=== PATIENT | male | born 1970 | race Caucasian/White ===

== ENCOUNTER → 2018-05-24 10:23 | Outpatient (CLI) | payer OTHER, SELFPAY | PROVIDERS: Family Provider Family Medicine; PCP Family Medicine; Visit Provider Physician Assistant Surgical | DX: S86.011A Strain of right Achilles tendon, initial encounter (principal) | CPT/HCPCS: 73721 ==

== ENCOUNTER 2018-07-22 09:00 | Outpatient (RCR) | payer OTHER, SELFPAY ==
--- NOTE | 2018-07-04 13:46 | HP.PTEVAL_ITS ---
Patient's Visit Information YUNIEL LEE is a 48 year old M referred to Physical Therapy by Vivienne Philip DO with a diagnosis of R achilles tendon injury. Date of Evaluation: 07/04/18 Physical Therapist: Matty Huang - Visit Plan Frequency: 2-3x /Week Duration: 2-4 Weeks Plan: Start with gentle ROM, do not stress DF yet. Add in INV/EVR gentle strengthening (1-2 weeks). Progress to full ROM at 8-12 weeks. Progress to strenghtening and gait as tolerated. - Subjective Subjective: Pt. is here today for his initial evaluation with diagnosis of R achilles tendon injury. Pt. reports hurting his leg while gettingout of his tractor at work. Pt. believes that he caught his heel on a step and when he landed it felt likea sponge. He report no real pain, but was unable to push off with his R foot any more. Injury occured on 05/15/18. Pt. eventually saw in orthopedic physician who got an MRI showing R achilles tendon rupture with 2mm fluid filled gap between endings. Pt. opted to conservative care at this point in time. He is currently in a CAM boot constantly except for showers. Pt. reports being consistent with this precaution. He continues to work with boot on. Pt. reports no pain currently, but does notice increased swelling. He also reports a bump on his achilles tendon now. Pt. has not been doing any exercises or icing at this point in time. 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 - Objective POSTURE: Pt. is able to stand with proper [place]ON[place], but slight L sided wt. shift. PALPATION: Pt. has slight brusing inferior to lateral malleolus. Pt. has mild non pitting edema throughout R distal LE. Pt. has marked callousing at achilles tendon, distally. NEURO: Normal all intact. No deficits. ROM: L ankle- DF 18deg, PF 48deg, EVR/INV 20deg/ea. R ankle- DF 0deg, PF 32deg, INV 7deg, EVR 7deg. Knee- normal bilaterally. MMT: RLE- ankle 3/5 no over pressure noted throughout; knee- 5/5 throughout. LLE- ankle 5/5 throughout; knee- 5/5 throughout. GAIT: Pt. ambulates with normal pattern with CAM boot, did not trial without boot this date. STAIRS: reciprocal pattern noted, without HR. - Goals Goal 1:: Pt. to be I with HEP. Goal Time Frame: 4-6 Weeks Goal 2:: Pt. to have increased ankle ROM by 25% in all directions without increase in symptoms. Goal Time Frame: 4-6 Weeks Goal 3:: Pt. to have increased strength by 1/2 grade of all effected musculature of R ankle. Goal Time Frame: 4-6 Weeks Goal 4:: Pt. to ambulate without CAM boot with normal pattern without increase in symptoms. Goal Time Frame: 6-8 Weeks Goal 5:: Pt. to resume all work activies without increase in symptoms. Goal Time Frame: 6-8 Weeks - Rehabilitation Potential Physical Therapy Diagnosis: Pt. has signs and symptoms consistent with R achilles tendon rupture without surgical intervention. Pt. has subsequent hypomobility, weakness and difficulty with gait. Pt would benefit from PT to increas ROM, maintain tendon protection and progress back to stregnthening/gait training once medically ready. Rehabilitation Potential: Excellent - Anticipated Interventions Thank you for the opportunity to evaluate your patient. For Medicare and Medicare HMO plans, please review the plan of care and approve it. It will need to be FAXED BACK to us at [phone] for Medicare purposes. Please let me know if there are questions or concerns regarding this plan of care. Physician Signature: Date:
--- NOTE | 2018-07-12 07:19 | HP.PTEVAL ---
Patient's Visit Information YUNIEL LEE is a 48 year old M referred to Physical Therapy by Vivienne Philip DO with a diagnosis of R achilles tendon injury. Date of Evaluation: 07/04/18 Physical Therapist: Matty Huang - Visit Plan Frequency: 2-3x /Week Duration: 2-4 Weeks Plan: Start with gentle ROM, do not stress DF yet. Add in INV/EVR gentle strengthening (1-2 weeks). Progress to full ROM at 8-12 weeks. Progress to strenghtening and gait as tolerated. - Subjective Subjective: Pt. is here today for his initial evaluation with diagnosis of R achilles tendon injury. Pt. reports hurting his leg while gettingout of his tractor at work. Pt. believes that he caught his heel on a step and when he landed it felt likea sponge. He report no real pain, but was unable to push off with his R foot any more. Injury occured on 05/15/18. Pt. eventually saw in orthopedic physician who got an MRI showing R achilles tendon rupture with 2mm fluid filled gap between endings. Pt. opted to conservative care at this point in time. He is currently in a CAM boot constantly except for showers. Pt. reports being consistent with this precaution. He continues to work with boot on. Pt. reports no pain currently, but does notice increased swelling. He also reports a bump on his achilles tendon now. Pt. has not been doing any exercises or icing at this point in time. 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 - Objective POSTURE: Pt. is able to stand with proper [place], but slight L sided wt. shift. PALPATION: Pt. has slight brusing inferior to lateral malleolus. Pt. has mild non pitting edema throughout R distal LE. Pt. has marked callousing at achilles tendon, distally. NEURO: Normal all intact. No deficits. ROM: L ankle- DF 18deg, PF 48deg, EVR/INV 20deg/ea. R ankle- DF 0deg, PF 32deg, INV 7deg, EVR 7deg. Knee- normal bilaterally. MMT: RLE- ankle 3/5 no over pressure noted throughout; knee- 5/5 throughout. LLE- ankle 5/5 throughout; knee- 5/5 throughout. GAIT: Pt. ambulates with normal pattern with CAM boot, did not trial without boot this date. STAIRS: reciprocal pattern noted, without HR. - Goals Goal 1:: Pt. to be I with HEP. Goal Time Frame: 4-6 Weeks Goal 2:: Pt. to have increased ankle ROM by 25% in all directions without increase in symptoms. Goal Time Frame: 4-6 Weeks Goal 3:: Pt. to have increased strength by 1/2 grade of all effected musculature of R ankle. Goal Time Frame: 4-6 Weeks Goal 4:: Pt. to ambulate without CAM boot with normal pattern without increase in symptoms. Goal Time Frame: 6-8 Weeks Goal 5:: Pt. to resume all work activies without increase in symptoms. Goal Time Frame: 6-8 Weeks - Rehabilitation Potential Physical Therapy Diagnosis: Pt. has signs and symptoms consistent with R achilles tendon rupture without surgical intervention. Pt. has subsequent hypomobility, weakness and difficulty with gait. Pt would benefit from PT to increas ROM, maintain tendon protection and progress back to stregnthening/gait training once medically ready. Rehabilitation Potential: Excellent - Anticipated Interventions Patient/Client Instruction: Educate patient on: Condition, Plan of Care, Risk Factors, Benefits of Fitness Program For the Purpose of:: To improve health and function, To foster healthy habits, To improve decision making, To facilitate caregiver knowledge, To improve self management, To prevent re-injury, To improve ability to perform tasks related to life management, To improve tolerance to ADL's Therapeutic Exercise to Include: Strength training, Power training, Postural training, Flexibilty training, Gait and locomotor training, Passive ROM, Active ROM For the Purpose of:: To decrease pain, To increase ROM, To improve nutrient delivery to tissue, To improve muscle performance and motor function, To improve health of tissue, To decrease soft tissue restriction, To increase flexibility/ROM, To improve balance IF ES: Yes Cryotherapy (ice pack, ice massage): Yes Ultrasound (thermal/non thermal): Yes For the Purpose of:: To decrease pain, To decrease swelling/inflammation, To increase ROM, To improve nutrient delivery to tissue Thank you for the opportunity to evaluate your patient. For Medicare and Medicare HMO plans, please review the plan of care and approve it. It will need to be FAXED BACK to us at [phone] for Medicare purposes. Please let me know if there are questions or concerns regarding this plan of care. Physician Signature: Date:
--- NOTE | 2019-01-13 08:36 | HP.PT.NRP ---
HP - Discharge Summary (1) - Patient Information YUNIEL LEE was seen in my office for initial evaluation on 07/04/18. The following Plan of Care was established for this patient: Initial Frequency: 2-3x /Week Initial Duration: 2-4 Weeks - Anticipated Interventions Patient/Client Instruction: Educate patient on: Condition, Plan of Care, Risk Factors, Benefits of Fitness Program For the Purpose of:: To improve health and function, To foster healthy habits, To improve decision making, To facilitate caregiver knowledge, To improve self management, To prevent re-injury, To improve ability to perform tasks related to life management, To improve tolerance to ADL's Therapeutic Exercise to Include: Strength training, Power training, Postural training, Flexibilty training, Gait and locomotor training, Passive ROM, Active ROM For the Purpose of:: To decrease pain, To increase ROM, To improve nutrient delivery to tissue, To improve muscle performance and motor function, To improve health of tissue, To decrease soft tissue restriction, To increase flexibility/ROM, To improve balance IF ES: Yes Cryotherapy (ice pack, ice massage): Yes Ultrasound (thermal/non thermal): Yes For the Purpose of:: To decrease pain, To decrease swelling/inflammation, To increase ROM, To improve nutrient delivery to tissue This patient was last seen in our office 07/22/18. Pertinent comments regarding their Physical therapy will appear below: Pt. was seen for her achilles tendon repair. Pt. came to 3 appointments, but did not attend the rest. He has not been seenin several months and will be DC from PT at this point in time. At this point I will be discontinuing this patient from physical therapy. I would be happy to see this patient again in the future if found appropriate by the physician. Thank you! Matty Huang, JULIENT
== END 2018-07-22 19:00 | disposition home or self-care (01) ==
LOC: PT 09:00
PROVIDERS: Family Provider Family Medicine; PCP Family Medicine; Visit Provider Orthopaedic Surgery
DX: S86.001D Unspecified injury of right Achilles tendon, subsequent encounter (principal)
CPT/HCPCS: 97035; 97110; 97140; 97161